=== PATIENT | female | born 1965 | race Caucasian/White ===

== ENCOUNTER 2019-01-07 18:30 | Emergency (ER) | payer OTHER ==
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
[2019-01-07] MEDS ORDERED: IBUPROFEN 800 MG TAB PO ONE (18:52)
[2019-01-07 19:44] VITALS: BP 112/74
== END 2019-01-07 19:56 | disposition home or self-care (01) ==
LOC: CED 18:30
DX: S16.1XXA Strain of muscle, fascia and tendon at neck level, initial encounter (principal); V49.40XA Driver injured in collision with unspecified motor vehicles in traffic accident, initial encounter; Y92.410 Unspecified street and highway as the place of occurrence of the external cause; Y99.9 Unspecified external cause status
CPT/HCPCS: 72125-PO; 99284-ER